=== PATIENT | female | born 1945 ===

== ENCOUNTER 2017-04-10 13:02 | Emergency (ER) | payer MEDICARE, MEDICAID ==
[2017-04-10 13:09] VITALS: BMI 26.4
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
[2017-04-10 16:06] VITALS: BP 114/70; PULSE 99; RESP 20; TEMP 99.8
[2017-04-10 17:16] VITALS: O2SAT 99
== END 2017-04-10 16:08 | disposition home or self-care (01) ==
LOC: C.ER 13:02
DX: M54.2 Cervicalgia (principal)
CPT/HCPCS: 96374; 99285; J1885